=== PATIENT | female | born 1985 | race Caucasian/White ===

== ENCOUNTER 2018-09-02 07:36 | Day surgery (SDC) | payer OTHER ==
[~2018-09-02 07:36] MED LIST: Midazolam 1 MG/ML 2 ML SDV ONE; Propofol 200 MG/20 ML SDV ONE; fentaNYL 100 MCG/2 ML SDV ONE
[2018-09-02] MEDS ORDERED: Dextrose 5%-Lactated Ringers 1,000 ML IV SCH (08:30)
[2018-09-02] MEDS ORDERED: Glycopyrrolate 0.2 MG/ML 2 ML SDV IVPUSH ONE (09:00)
[2018-09-02] MEDS ORDERED: Ondansetron 4 MG/2 ML SDV ONE (09:47)
--- NOTE | 2018-09-02 14:29 | OR ---
DATE OF PROCEDURE: 09/02/2018 PREOPERATIVE DIAGNOSIS: Weight regain, status post Meron-en-Y gastric bypass. POSTOPERATIVE DIAGNOSIS: Weight regain, status post Meron-en-Y gastric bypass associated with development of gastrogastric fistula. DESCRIPTION OF PROCEDURE: The patient was taken to the operating room and placed in a left lateral decubitus position. IV sedation was administered, after which the upper GI endoscope was passed orally through the length of the esophagus and into the gastric pouch, from there through the gastrojejunostomy roughly 20 cm into the Meron limb. Findings included normal hypopharynx, larynx, upper esophageal sphincter, and esophageal body. At the EG junction, there was no significant inflammation. The gastric pouch did have a gastrogastric fistula. This was more or less adjacent to the main fistula. The remainder of the stomach could easily be visualized. Bile was also coming back around this and resulted in some reddening of the mucosa around the fistula site. Gastrojejunostomy itself was otherwise unremarkable. The blind limb of the Meron limb was noted to be quite elongated and it contained some retained food within it at this point. At this point, no further problems were noted. The scope was then withdrawn. The patient had a breath test positive for H. pylori recently, so CLOtest was not obtained at this time, and she is going to be just starting treatment of this today. The scope was withdrawn. The patient was taken to the recovery room in a satisfactory condition. The plan, at this point, will be to proceed with a letter for prior authorization for revision of the gastric bypass with her insurance carrier. Keyshawn Gillis MD /[id number]
== END 2018-09-02 11:10 | disposition home or self-care (01) ==
LOC: JP.SDS 07:36
PROVIDERS: ATTEND Surgery
DX: K95.89 Other complications of other bariatric procedure (principal)
CPT/HCPCS: 43235; 81025; J2250; J2405; J2704; J3010; J3490; J7042

== ENCOUNTER 2019-04-07 08:42 | Inpatient (IN) | payer OTHER ==
[~2019-04-07 08:42] MED LIST changes: +Bupivacaine 0.5%/EPINEPHrine 1:200,000 50 ML MDV ONE; -Midazolam 1 MG/ML 2 ML SDV ONE; -Propofol 200 MG/20 ML SDV ONE; +cefOXitin 2 GM Vial ONE; -fentaNYL 100 MCG/2 ML SDV ONE
[2019-04-07] MEDS ORDERED: Celecoxib 200 MG Cap PO ONE (09:00)
[2019-04-07] MEDS ORDERED: Scopolamine 1.5 MG Transdermal Patch TOP ONE (09:00)
[2019-04-07] MEDS ORDERED: Acetaminophen 500 MG Tab PO ONE (09:00)
[2019-04-07] MEDS ORDERED: Gabapentin 300 MG Cap PO ONE (09:00)
[2019-04-07] MEDS ORDERED: Dextrose 5%-Lactated Ringers 1,000 ML IV SCH (09:15)
[2019-04-07] MEDS ORDERED: Glycopyrrolate 0.2 MG/ML 5 ML MDV ONE (09:39)
[2019-04-07] MEDS ORDERED: Rocuronium 50 MG/5 ML Vial ONE ×2 (09:39→11:41)
[2019-04-07] MEDS ORDERED: fentaNYL 250 MCG/5 ML SDV ONE ×2 (09:39→11:24)
[2019-04-07] MEDS ORDERED: Ondansetron 4 MG/2 ML SDV ONE (09:39)
[2019-04-07] MEDS ORDERED: Succinylcholine 200 MG/10 ML MDV ONE (09:39)
[2019-04-07] MEDS ORDERED: Dexamethasone 4 MG/ML SDV ONE (09:39)
[2019-04-07] MEDS ORDERED: Neostigmine Methylsulfate 1 MG/ML 5 ML Syringe ONE (09:39)
[2019-04-07] MEDS ORDERED: Propofol 200 MG/20 ML SDV ONE (09:39)
[2019-04-07] MEDS ORDERED: Magnesium Sulfate 3.9 GM in Sodium Chloride 0.9% 100 ML IV ONE (10:30)
[2019-04-07] MEDS ORDERED: Ketamine 500 MG/5 ML MDV IV SCH (10:30)
[2019-04-07] MEDS ORDERED: Ketamine 50 MG in Sodium Chloride 0.9% 49.5 ML IV SCH (10:30)
[2019-04-07] MEDS: cefOXitin 2 GM in Sodium Chloride 0.9% 50 ML IV ONE ×2 (11:17→15:53)
[2019-04-07] MEDS ORDERED: hydrOXYzine HCL 100 MG/2 ML SDV IM ONE (13:59)
[2019-04-07] MEDS ORDERED: hydrOXYzine HCL 100 MG/2 ML SDV IM PRN (15:06)
[2019-04-07] MEDS ORDERED: Metoclopramide 10 MG/2 ML SDV IVPUSH PRN (15:06)
[2019-04-07] MEDS ORDERED: Cyclobenzaprine 10 MG Tab PO PRN (15:06)
[2019-04-07] MEDS ORDERED: HYDROmorphone 0.5 MG/0.5 ML Syringe IVPUSH PRN (15:06)
[2019-04-07] MEDS ORDERED: Labetalol 20 MG/4 ML Syringe IVPUSH PRN (15:06)
[2019-04-07] MEDS ORDERED: diphenhydrAMINE 50 MG/ML SDV IVPUSH PRN (15:06)
[2019-04-07] MEDS: HYDROmorphone 1 MG/ML Syringe IV PRN ×2 (15:23→20:41)
[2019-04-07] MEDS: Ondansetron 4 MG/2 ML SDV IVPUSH PRN ×2 (15:23→19:21)
[2019-04-07] MEDS ORDERED: MVI, Adult with Vitamin K 10 ML, Thiamine 200 MG, Chromium/Copper/Mang/Selen/Zn 1 ML in... IV SCH ×4 (16:00)
[2019-04-07] MEDS: Acetaminophen 500 MG Tab PO SCH ×2 (16:39→23:27)
[2019-04-07] MEDS: Pantoprazole 40 MG Vial IVPUSH SCH (16:40)
[2019-04-07] MEDS: cefOXitin 2 GM in Sodium Chloride 0.9% 50 ML IV SCH ×2 (18:34→23:27)
[2019-04-07] MEDS: Heparin Sodium 5,000 Units/ML Vial SUBCUT SCH (19:24)
[2019-04-07] MEDS: Gabapentin 250 MG/5 ML Solution ML 470 ML Bottle PO SCH (21:42)
[2019-04-07] MEDS: Dextrose 5%-Lactated Ringers 1,000 ML IV SCH (23:17)
[2019-04-07] MEDS: oxyCODONE 5 MG Tab PO PRN (23:27)
[2019-04-08] MEDS ORDERED: Iopamidol 612 MG/ML 50 ML SDV PO STA (03:28)
--- NOTE | 2019-04-08 05:14 | CRLCR ---
Indication: Meron-en-Y revision Technique: Abdomen 3 view. Comparison: None Findings/Impression: : Three static images of the abdomen were obtained after administration of oral contrast material. Oral contrast material is seen within the distal esophagus, gastric pouch, and proximal small bowel. There is a surgical drain projecting over the left quadrant. No evidence for leak of oral contrast. Dictated by Uzma Gates MD @ Apr 08 2019 5:10AM Signed by Dr. Uzma Gates @ Apr 08 2019 5:13AM
[2019-04-08] MEDS: Dextrose 5%-Lactated Ringers 1,000 ML IV SCH ×2 (05:37→14:41)
[2019-04-08] MEDS: oxyCODONE 5 MG Tab PO PRN ×3 (05:48→19:30)
[2019-04-08] MEDS: cefOXitin 2 GM in Sodium Chloride 0.9% 50 ML IV SCH ×3 (05:50→17:52)
--- NOTE | 2019-04-08 07:22 | CRLCR ---
INDICATION: Status post revision Meron-en-Y gastric bypass; delayed imaging from previous upper GI. TECHNIQUE: KUB 3 hrs after administration of oral contrast. FINDINGS: Contrast identified within the small bowel in the pelvis. Surgical drain identified in the left upper quadrant of the abdomen. Impression: Contrast has progressed further and present in the small bowel present within the lower pelvis. Dictated by Flo Patel MD @ Apr 08 2019 7:17AM Signed by Dr. Flo Patel @ Apr 08 2019 7:21AM
[2019-04-08] MEDS ORDERED: Ondansetron 4 MG Tab.DIS PO PRN (07:34)
[2019-04-08] MEDS: Citalopram 10 MG Tab PO SCH (08:28)
[2019-04-08] MEDS: Celecoxib 200 MG Cap PO SCH ×2 (08:28→21:05)
[2019-04-08] MEDS: Acetaminophen 500 MG Tab PO SCH ×2 (08:28→16:08)
[2019-04-08] MEDS: Heparin Sodium 5,000 Units/ML Vial SUBCUT SCH ×2 (08:28→19:23)
[2019-04-08] MEDS: SCOPOLAMINE PATCH CHECK TOP SCH (08:28)
[2019-04-08] MEDS: Gabapentin 250 MG/5 ML Solution ML 470 ML Bottle PO SCH ×3 (08:31→21:04)
[2019-04-08] MEDS ORDERED: CITALOPRAM HYDROBROMIDE 10 MG PO SCH (09:00)
--- NOTE | 2019-04-08 09:26 | PN ---
DATE OF SERVICE: 04/08/2019 SUBJECTIVE: Dai is postoperative day #1. Her upper GI this morning was normal. Vital signs have been stable. Pain has been controlled. Oral intake 580. Urine output 1380 via López catheter. TIMO drain put out 195 mL of a light pink drainage. REVIEW OF SYSTEMS: Remainder of review of systems negative for any pertinent positives and negatives. OBJECTIVE: GENERAL: Dai Perez is a 34-year-old female. VITAL SIGNS: TPR is 100, 75, 18, blood pressure 149/82. HEENT: Negative. NECK: Supple. HEART: Regular rate and rhythm without murmur. LUNGS: Clear. ABDOMEN: Dressings dry and intact. Abdominal binder is on. EXTREMITIES: Without peripheral edema. ASSESSMENT: Diagnostic laparoscopy with; 1. Revision of Meron-en-Y gastric bypass surgery. 2. Small bowel resection. 3. Hepatomegaly for weight regain with gastrogastric fistula, very enlarged gastric pouch, segment of small bowel ischemic after takedown of adhesions and marked hepatomegaly. Date of surgery: 04/07/2019. Surgeon: Keyshawn Gillis MD. PLAN: 1. Decrease IV to 100 mL/h. 2. Dressing off, may shower. 3. Discontinue López catheter. 4. Step 2 gastric bypass diet without cereal. 5. Zofran ODT 4 mg every 4 hours p.r.n. nausea, vomiting,. 6. Discontinue IV Dilaudid. 7. Discontinue continuous pulse ox. 8. Communication order: 3 med cups per hour or 1 every 20 minutes. 9. We will evaluate p.r.n. or in a.m. Mildred Ferreira PA-C /[id number]
[2019-04-08 10:01] LABS: HEMOGLOBIN A1C 5.5 % (4.5-6.2)
[2019-04-08] MEDS ORDERED: MVI, Adult with Vitamin K 10 ML, Thiamine 200 MG, Chromium/Copper/Mang/Selen/Zn 1 ML in... IV SCH ×4 (16:00)
[2019-04-08] MEDS: Pantoprazole 40 MG Vial IVPUSH SCH (16:10)
[2019-04-09] MEDS: Acetaminophen 500 MG Tab PO SCH ×2 (00:08→08:04)
[2019-04-09] MEDS: Dextrose 5%-Lactated Ringers 1,000 ML IV SCH (02:51)
[2019-04-09] MEDS: oxyCODONE 5 MG Tab PO PRN ×2 (03:16→11:49)
[2019-04-09] MEDS ORDERED: Magnesium Hydroxide 400 MG/5 ML Susp 30 ML Cup PO PRN (07:51)
[2019-04-09] MEDS: Citalopram 10 MG Tab PO SCH (08:05)
[2019-04-09] MEDS: Celecoxib 200 MG Cap PO SCH (08:05)
[2019-04-09] MEDS: Heparin Sodium 5,000 Units/ML Vial SUBCUT SCH (08:11)
[2019-04-09] MEDS: Gabapentin 250 MG/5 ML Solution ML 470 ML Bottle PO SCH (08:11)
[2019-04-09] MEDS: SCOPOLAMINE PATCH CHECK TOP SCH (08:16)
[2019-04-09] MEDS ORDERED: Cyanocobalamin (Vitamin B12) 1,000 MCG/ML SDV IM ONE (09:00)
--- NOTE | 2019-04-10 05:48 | DISCH ---
ADMISSION DIAGNOSES: Weight regain after Meron-en-Y gastric bypass surgery; morbid obesity, BMI 44.1; iron deficiency anemia; hypertension; polycystic ovary syndrome; unspecified surgical malabsorption; prediabetes; anxiety; maladaptive health behaviors affecting medical condition; vitamin B12 and B complex deficiency; and vitamin D deficiency. DISCHARGE DIAGNOSES: Diagnostic laparoscopy with; 1. Revision of Meron-en-Y gastric bypass surgery. 2. Small bowel resection. 3. Hepatomegaly for weight regain with gastrogastric fistula, very enlarged gastric pouch, segment of small bowel ischemic after takedown of adhesions and marked hepatomegaly. Date of surgery: 04/07/2019. Surgeon: Keyshawn Gillis M.D. HISTORY: Dai Perez is a 34-year-old female with longstanding history of morbid obesity and weight regain after Meron-en-Y gastric bypass surgery. After evaluation and discussion of possible risks and possible complications, she wished to proceed with surgical procedure. HOSPITAL COURSE: Dai had her surgery on 04/07/2019. She had no operative complications. On postop day #1, her upper GI was normal. She was started on a step-2 with no cereal, gastric bypass diet. Her activity was good. Pain was well managed. She received dietary instruction. On postop day #2, she was able to be discharged to home. Vital signs stable. Oral intake adequate. She received dietary instruction. PHYSICAL EXAMINATION: GENERAL: Dai Perez is a 34-year-old female. VITAL SIGNS: Height is 5 feet 8 inches, weight is 290 pounds, BMI is 44.1. TPR; 97.7, 74, 16. Blood pressure 137/83. HEENT: Negative. NECK: Supple. HEART: Regular rate and rhythm. LUNGS: Clear. ABDOMEN: Incisions look good. Sutures intact. Abdominal binder is on. EXTREMITIES: Without peripheral edema. DISPOSITION: Discharged to home. CONDITION: Stable and improving. FOLLOWUP APPOINTMENT: 04/16/2019 at 12:00 p.m. HOME MEDICATIONS: 1. Tylenol Extra Strength 1000 mg q.8 hours scheduled and may go to p.r.n. for pain. 2. Celebrex 200 mg oral twice daily. 3. Milk of magnesia 30 mL, 2 were sent home with the patient to take 1 daily. 4. Zofran ODT 4 mg q.4 hours p.r.n. nausea, #30. She is to resume home medication of Celexa 10 mg daily and discontinue taking vitamins and supplements until first postop appointment. DISCHARGE INSTRUCTIONS: 1. Diet: Step-2 gastric bypass diet with no cereal for 2 weeks until 04/22/2019. 2. Activity: No lifting over 10 pounds for 2 weeks. Walk at least 6 times daily inside your home. 3. Driving: Do not drive for 1 week and while on pain medication. 4. Shower/bathing: May shower. 5. Notify provider if any fever, increased pain, nausea or vomiting. Keep site clean and dry. 6. Wound incision care: Wear abdominal binder for 2 weeks and then as tolerated. 7. Special instructions: a. Use incentive spirometer 10 times every hour while awake for 1 week. b. For every hour of riding in the car on the way home, walk 5 to 10 minutes to avoid getting a blood clot. c. Keep record of fluid and water intake and bring to clinic appointment. 8. Prior to discharge, the patient was given special instructions on the use of no straws and caffeine. She was drinking caffeine in the hospital, and she was given instructions to eliminate all caffeine.
--- NOTE | 2019-04-10 10:48 | OR ---
DATE OF PROCEDURE: 04/07/2019 SURGEON: Keyshawn Gillis MD PREOPERATIVE DIAGNOSIS: Weight regain associated with gastrogastric fistula and a large gastric pouch. POSTOPERATIVE DIAGNOSES: 1. Weight regain associated with gastrogastric fistula and a large gastric pouch. 2. Segment of small bowel ischemic after takedown of adhesions. 3. Marked hepatomegaly. OPERATIVE PROCEDURES: Diagnostic laparoscopy with, 1. Revision of Meron-en-Y gastric bypass (09087). 2. Separate small bowel resection (93888). 3. Andrew-Cut needle liver biopsy ([id number]). ANESTHESIA: General. ASSEMBLER RUBBER FOOTWEAR: Mildred Ferreira PA-C. INDICATION FOR PROCEDURE: This is a 34-year-old, several years status post Meron-en-Y gastric bypass, presenting with significant weight regain. Upper endoscopy showed a gastrogastric fistula as well as a significantly enlarged gastric pouch and gastrojejunostomy. Plan is to proceed with a laparoscopic or if necessary open revision of the gastric bypass. This will be involving at least division of the gastric fistula, but more likely more significant final revision of the gastrojejunostomy reducing the pouch size as well as isolating it from the fistula site. We will also likely adjust the small bowel limb lengths to facilitate some increased weight loss as well. Potential risks of the procedure including bleeding, infection, leaks from various GI tract closures, problems with bowel obstruction over time, as well as the possibility of cardiopulmonary, septic, or hemorrhagic complications leading to were discussed, and the patient wishes to proceed. DETAILS OF PROCEDURE: The patient was taken to the operating room. After general endotracheal anesthesia was induced, she was placed in a lithotomy position. López catheter was inserted, and the abdomen was prepped and draped. 15 cm inferior and 5 cm left of the xiphoid process, a transverse incision was made and the peritoneal cavity entered under direct vision with an Optiview trocar, inflated to 15 mmHg pressure of CO2. Laparoscope was then reinserted and no underlying trocar insertion site injuries were seen. Following this, bilateral transversus abdominis plane blocks were placed under direct vision and 5 additional trocars were placed across the upper and mid-abdomen. Initial exploration revealed markedly enlarged and fatty-appearing liver. Andrew-Cut needle biopsy was obtained from left lobe of the liver. Hemostasis was obtained with electrocautery. At this point, we then opted to address the area of the gastrojejunostomy initially. The patient was placed in more of a sitting position. Some adhesions between the area of the bypass and the liver were then taken down with Harmonic scalpel. The patient was noted, at this point, to have a quite strikingly enlarged gastric pouch. This abutted the bypassed portion of the stomach as well. The decision at this point was to essentially resect the previous gastrojejunostomy along with some adjacent bypassed stomach, thus assuring that the fistula site would be within that excision and then create a much smaller, roughly 10 mL to 15 mL proximal gastric pouch and a new gastrojejunostomy. The area along the Meron limb was initially dissected free from some adhesions and the Meron limb divided more or less flush with the gastrojejunostomy. Gradual dissection using Harmonic scalpel as well as dividing some tissues with faye was then undertaken. This eventually freed up the fundus of the stomach and dissection continued where the gastric pouch and bypassed portion of the stomach were more or less fused, on the lesser curvature side, then further dissection continued along the gastric pouch up to a point where the proximal stomach could be divided with only roughly 3 cm distance between anatomic gastrojejunostomy and the point of division. This was accomplished with 2 firings of the MILLY black loads. As one reflected the tissue downward, it became evident that we would essentially need to divide the stomach at a point just distal to the location of the gastrojejunostomy being adherent to the bypassed stomach. This was done with MILLY black loads as well and that specimen was subsequently removed from the field. Attention was now taken to revision of the small bowel component. Some adhesions between the Meron limb, below the point where they had been divided, were taken down with electrocautery and Harmonic scalpel. This eventually led to freeing up of the Meron limb down to the level of the jejunojejunostomy. The Meron limb was at this point measured to be 140 cm. This was subsequently resected some additional lysis of adhesions, roughly 10 cm segment of the small bowel became ischemic in appearance and needed to be resected,. At this point, the previous jejunojejunostomy was essentially continuity of the biliopancreatic limb and from the ligament of Treitz, this was traced down 200 cm, giving the patient a much longer biliopancreatic limb. Between the end of the Meron limb then and the small bowel at that level, a [id number]-[id number] enteroenterostomy was accomplished with internal firing of the Endo-MILLY 60 mm stapler. Common opening was then closed transversely with the same stapler and the angles anastomosed and mesenteric defect approximated with some 0 Ethibond stitch. Attention was now taken to formation of the gastrojejunostomy. The anvil of a 25-mm EEA stapler was attached to Oxford sump tube. The latter was brought down through the mouth and taken out a small opening in the gastric pouch, allowing the anvil likewise to be pulled down through the gastric pouch. Divided end of the Meron limb was then opened and the main body EEA stapler passed several centimeters into the lumen of small bowel, brought up the anvil and united with it, thus creating the gastrojejunostomy. Upon removal of the stapler, double donuts of mucosa were noted within it. The small bowel was closed off with a vascular staple line. The gastrojejunostomy was then reinforced with some 3-0 Vicryl seromuscular stitch along with fibrin sealant. A leak test was accomplished with injection of 120 mL of air in the gastric pouch while it was submerged with cefoxitin-containing saline solution. No leaks were identified. A single Lam-Jc drain was then taken out through the left lateral trocar site and positioned adjacent to the gastrojejunostomy, and from there up into the splenic fossa. With no further problems noted, trocars were removed and the peritoneal cavity deflated. Incisions were closed with some 4-0 Vicryl skin stitch, which was also used to fix the drain. The patient was taken to the recovery room in satisfactory condition. Physician laboratory chemical assistant, Mildred Ferreira, played an essential role in assisting in this case, helping to position the patient, retract structures as needed, as well as suturing and cutting sutures when indicated. Her presence improved patient safety and decreased the operative time. Keyshawn Gillis MD /[id number]
== END 2019-04-09 11:55 | disposition home or self-care (01) | DRG 327 ==
LOC: JP.SDSSCHI 08:42 → JP.SDS 08:42 → EDSTATUS 10:15 → JP.MS 14:10
PROVIDERS: ADMIT Surgery; ATTEND Surgery
PROC: 0D164ZA Bypass Stomach to Jejunum, Percutaneous Endoscopic Approach (ICD-10-PCS; principal; 2019-04-07)
PROC: 0FB24ZX Excision of Left Lobe Liver, Percutaneous Endoscopic Approach, Diagnostic (ICD-10-PCS; 2019-04-07)
PROC: 0DB84ZZ Excision of Small Intestine, Percutaneous Endoscopic Approach (ICD-10-PCS; 2019-04-07)
DX: K31.6 Fistula of stomach and duodenum (principal); K90.9 Intestinal malabsorption, unspecified; Z68.41 Body mass index [BMI] 40.0-44.9, adult; K55.9 Vascular disorder of intestine, unspecified; K66.0 Peritoneal adhesions (postprocedural) (postinfection); E66.01 Morbid (severe) obesity due to excess calories; D50.9 Iron deficiency anemia, unspecified; I10 Essential (primary) hypertension; E28.2 Polycystic ovarian syndrome; F41.9 Anxiety disorder, unspecified; E53.8 Deficiency of other specified B group vitamins; E53.9 Vitamin B deficiency, unspecified; E55.9 Vitamin D deficiency, unspecified; R16.0 Hepatomegaly, not elsewhere classified
CPT/HCPCS: 36415; 74018; 74240; 80053; 82962; 83036; 83735; 84100; 85025; 86850; 86900; 86901; 88307; 88313; A9270-GY; C9113; J0171; J0330; J0694; J1100; J1170; J1644; J2405; J2704; J2710; J2765; J2795; J3010; J3410; J3411; J3420; J3475; J3490; J7050; J7121; Q9967

== ENCOUNTER 2019-04-24 12:43 | Observation (INO) | payer OTHER ==
[2019-04-24] MEDS ORDERED: Acetaminophen 650 MG Supp RECTAL PRN (13:39)
[2019-04-24] MEDS ORDERED: Meperidine PF 100 MG/ML Syringe IM ONE (14:00)
[2019-04-24] MEDS ORDERED: Iopamidol 612 MG/ML 30 ML SDV PO ONE (14:41)
[2019-04-24] MEDS ORDERED: Sodium Chloride 0.9% 90 ML IV ONE (14:41)
[2019-04-24] MEDS ORDERED: Sodium Chloride 0.9% 10 ML Syringe FLUSH PRN (14:41)
[2019-04-24] MEDS ORDERED: Iopamidol 755 Mg/ML 100 ML Bottle IV SCH (14:45)
[2019-04-24] MEDS: Dextrose 5%-Lactated Ringers 1,000 ML IV SCH (15:04)
[2019-04-24] MEDS ORDERED: Naloxone 0.4 MG/ML SDV IVPUSH PRN (16:17)
--- NOTE | 2019-04-24 16:24 | CRLCT ---
INDICATION: pain, revision of gastric bypass [address] CHEST, ABDOMEN, AND PELVIS WITH CONTRAST TECHNIQUE: Multidetector CT imaging was performed through the chest, abdomen, and pelvis following intravenous contrast administration using 100 mL Isovue 370. Coronal and sagittal reconstructions were generated. COMPARISON: None. FINDINGS: Lungs and airways: Mild bilateral dependent and basilar lung atelectasis, left greater than right. No confluent infiltrates, suspicious nodules, or masses. Central airways are patent. Pleura and pleural spaces: Small left pleural effusion. Heart and mediastinum: Normal heart size. No significant pericardial effusion. No pathologically enlarged mediastinal lymph nodes. Vascular structures: No filling defects in the pulmonary arterial tree to suggest pulmonary emboli. Normal caliber thoracic and abdominal aorta without evidence of dissection. Chest wall and axillae: No mass or axillary lymphadenopathy. Spleen: Within normal limits. Gallbladder and bile ducts: Status post cholecystectomy. No biliary dilation identified. Pancreas, adrenals, and retroperitoneum: No pancreatic or adrenal mass. No pathologically enlarged lymph nodes identified in the abdomen or pelvis. Kidneys, ureters, and urinary bladder: No renal masses or hydronephrosis. No bladder mass or definite wall thickening. Gastrointestinal tract, liver, peritoneum, and abdominal wall: Multiple surgical clips in the left upper quadrant and postoperative changes of Meron-en-Y gastric bypass. Images 20-37 of series 5 and images 42-65 of series 6 show a bilobed 10.5 x 2.7 x 2.8 centimeter fluid collection within the left hepatic lobe draped over the esophagogastric junction, potentially representing an abscess. An additional smaller collection measuring 3.5 x 1.1 x 1.5 centimeters is seen along the undersurface of the left hepatic lobe more anteriorly on image 29 of series 5 and image 35 series 6, and could represent an additional abscess. No evidence of bowel obstruction. Appendix not identified. No free air identified. Postoperative changes in the anterior abdominal wall consistent with recent laparoscopic surgery. Reproductive organs: No pelvic masses. Bones: Normal for age. IMPRESSION: 1. Postoperative changes of Meron-en-Y gastric bypass. 2. Bilobed 10.5 x 2.7 x 2.8 centimeter fluid collection within the left hepatic lobe draped over the esophagogastric junction and 3.5 x 1.1 x 1.5 centimeter fluid collection along the undersurface of the left hepatic lobe anteriorly, both possibly representing abscesses. 3. Small left pleural effusion. 4. Status post cholecystectomy. YOSHI GILL MD [facility] Dictated by Kenneth Gill MD @ 04/24/2019 4:18:29 PM Dictated by: Kenneth Gill MD @ 04/24/2019 16:23:00 (Electronically Signed)
[2019-04-24] MEDS: HYDROmorphone/Normal Saline 15 MG/30 ML PCA IV PRN (16:48)
--- NOTE | 2019-04-24 18:07 | CRLUS ---
INDICATION: left arm pain LEFT UPPER EXTREMITY VENOUS DUPLEX ULTRASOUND TECHNIQUE: Duplex sonography using grayscale imaging as well as color and spectral Doppler interrogation was performed over the left upper extremity with attention to the major venous branches. FINDINGS: The left internal jugular, subclavian, axillary, brachial, basilic, radial, and ulnar veins exhibit appropriate compressibility and normal Doppler flow. The cephalic vein could not be visualized. IMPRESSION: No evidence of venous thrombosis or obstruction in the left upper extremity. YOSHI GILL MD [facility] Dictated by: Kenneth Gill MD @ 04/24/2019 18:06:12 (Electronically Signed)
[2019-04-24] MEDS: Ondansetron 4 MG/2 ML SDV IVPUSH PRN (22:45)
[2019-04-25] MEDS: Dextrose 5%-Lactated Ringers 1,000 ML IV SCH ×3 (00:13→20:13)
[2019-04-25] MEDS: Acetaminophen 325 MG Tab PO PRN ×2 (04:58→17:54)
[2019-04-25] MEDS: Magnesium Sulfate/Water 2 GM in Premix Bag 1 BAG IV SCH ×3 (08:43→20:13)
[2019-04-25] MEDS: Citalopram 10 MG Tab PO SCH (08:48)
--- NOTE | 2019-04-25 09:18 | CR ---
Shoulder Comp Lt CLINICAL HISTORY: 3 view FINDINGS: There is no acute fracture or dislocation in the left shoulder. Articular surfaces are smooth. There is no obvious effusion Impression: Negative
[2019-04-25] MEDS ORDERED: Potassium Phosphates 20 MMOLE in Sodium Chloride 0.9% 250 ML IV SCH (09:30)
--- NOTE | 2019-04-25 09:55 | PN ---
DATE OF SERVICE: 04/25/2019 SUBJECTIVE: Dai continues to report pain on a pain scale of 1 to 10, a 5 to 7/10 in her left shoulder, tenderness to touch. Peripheral vascular ultrasound, angiography, and abdominal CT reviewed, all thought to be within normal limits. The fluid collection in the abdomen Keyshawn Gillis MD thought to be secondary to normal postop, using MEDICAL DONATION PROFESSIONAL for pain control, then up independently in room. Oral intake 390, urine output 300. REVIEW OF SYSTEMS: Remainder of review of systems negative for any pertinent positives and negatives. OBJECTIVE: GENERAL: Dai Perez is a 34-year-old female. Alert and orientated. VITAL SIGNS: TPR 95.8, 86, 16. Blood pressure 113/58. HEENT: Negative. NECK: Supple. HEART: Regular rate and rhythm. LUNGS: Clear. ABDOMEN: Soft and nontender. EXTREMITIES: Left extremity behind the shoulder is point tenderness in the posterior shoulder area, limited range of motion due to increase in pain. ASSESSMENT: 1. Left shoulder pain, status post revision. 2. Meron-en-Y gastric bypass surgery. 3. Unspecified surgical malabsorption B12 deficiency. PLAN: 1. Continue MEDICAL DONATION PROFESSIONAL. 2. Magnesium 2 g IV q.6 hours x72 hours. 3. K-Phos 45 millimoles. 4. Waiting for left shoulder x-ray. If negative, we will check an MRI. Consult Can Gutierrez MD hospitalist for shoulder pain. 5. We will evaluate p.r.n. or in a.m. Mildred Ferreira PA-C /[id number]
[2019-04-25] MEDS: Ondansetron 4 MG/2 ML SDV IVPUSH PRN (10:43)
--- NOTE | 2019-04-25 12:01 | PCM.CONS ---
H&P History of Present Illness - General Date of Service: 04/25/19 Admit Problem/Dx: Admission Diagnosis/Problem Admission Diagnosis/Problem Pain Source of Information: Patient, Provider History Limitations: Reports: No Limitations - History of Present Illness Initial Comments - Free Text/Narative: CC: My shoulder hurts so bad HPI: Dai was admitted yesterday with severe left shoulder pain. I was asked to see her today regarding left shoulder, neck and back pain. She reports onset of pain about 5 days ago. Pain onset was sudden and severe. She describes sharp pain that starts in the shoulder and radiates to the left neck as well as into the left mid back. The pain has started to progress down into the lower back and flank area. Pain is worse when she is laying on her back and especially on her left side. Movement around the shoulder also causes some pain. Pain pills have not helped much and Tylenol has provided no relief. Pain has slowly been getting worse and definitely not getting better as the 5 days have progressed. She is able to find some comfort when she lays on her right side curled up in a position. She feels short of breath and her pain does get worse when she tries to take a deep breath. She does not report abdominal pain. She has had no appetite and when her pain is severe she is not able to even take in fluids. No diarrhea or change in bladder habits. She has had fevers both subjective and objective at home with the highest temperature more than 101 degrees. She had gastric bypass surgery about 2 weeks ago and the first week out of the hospital went very well with no problems. Left Shoulder Pain Score (Numeric/FACES): 8 - Related Data Allergies/Adverse Reactions: Allergies Allergy/AdvReac Type Severity Reaction Status Date / Time Penicillins Allergy Hives Verified 04/07/19 09:29 Home Medications: Home Meds Citalopram Hydrobromide [Celexa] 10 mg PO DAILY 08/30/18 [History] Celecoxib [CeleBREX] 200 mg PO BID cap 04/09/19 [Rx] Magnesium Hydroxide [Milk of Magnesia] 30 ml PO DAILY PRN cup 04/09/19 [Rx] Ondansetron [Zofran ODT] 4 mg PO Q4H PRN #30 tab.dis 04/09/19 [Rx] Acetaminophen 1,000 mg PO Q6HR PRN 04/24/19 [History] Past Medical History HEENT History: Reports: None Gastrointestinal History: Reports: Other (See Below) Genitourinary History: Reports: None [employer] History: Reports: , Other (See Below) Other OB/BYN History: september 2017 Neurological History: Reports: None Psychiatric History: Reports: Anxiety Endocrine/Metabolic History: Reports: Obesity/BMI 30+ Hematologic History: Reports: Anemia, B12 Deficiency, Iron Deficiency Oncologic (Cancer) History: Reports: None - Infectious Disease History Infectious Disease History: Reports: None - Past Surgical History Head Surgeries/Procedures: Reports: None HEENT Surgical History: Reports: Other (See Below) Other HEENT Surgeries/Procedures: wisdom teeth GI Surgical History: Reports: Appendectomy, Bariatric Procedure, Cholecystectomy , Other (See Below) Female Surgical History: Reports: Section Social & Family History - Family History Family Medical History: Noncontributory Cardiac: Reports: Other (See Below) Other Cardiac Family History: father with PVD - Tobacco Use Smoking Status *Q: Never Smoker Second Hand Smoke Exposure: No - Caffeine Use Caffeine Use: Reports: None Other Caffeine Use: under 100 mg per day - Alcohol Use Alcohol Use History: No - Recreational Drug Use Recreational Drug Use: No H&P Review of Systems - Review of Systems: Review Of Systems: See Below Free Text/Narrative: A complete 12 point review of systems was obtained. Pertinent positives and negatives are noted in the history of present illness. All other systems were reviewed and were negative except as noted. Exam - Exam Exam: See Below - Vital Signs Vital Signs: Last Vital Signs Temp 35.6 C L 04/25/19 10:29 Pulse 90 04/25/19 10:29 Resp 16 04/25/19 10:29 BP 137/74 04/25/19 10:29 Pulse Ox 93 L 04/25/19 10:29 Weight: 128.82 kg - Exam Quality Assessment: No: Supplemental Oxygen General: Alert, Oriented, Cooperative, Mild Distress HEENT: Conjunctiva Clear, Mucosa Moist & [place]. No: Scleral Icterus Neck: Supple, Trachea Midline. No: Lymphadenopathy Lungs: Normal Respiratory Effort, Decreased Breath Sounds (mild left base) Cardiovascular: Regular Rhythm, Tachycardia GI/Abdominal Exam: Soft, No Distention, Tender (LUQ) Back Exam: Normal Inspection, Muscle Spasm, Paraspinal Tenderness (left midback) . No: Full Range of Motion Extremities: No Pedal Edema. No: Increased Warmth Skin: Warm, Dry Neuro Extensive - Mental Status: Alert, Oriented x3, Nl Response to Commands Neuro Extensive - Motor, Sensory, Reflexes: No: Dysarthria, Abnormal Motor, Tremor Psychiatric: Alert, Normal Affect - Patient Data Lab Results Last 24 hrs: Laboratory Results - last 24 hr 04/25/19 04/25/19 Range/Units 04:28 04:28 WBC 12.4 H (4.5-11.0) K/uL RBC 3.86 (3.30-5.50) M/uL Hgb 10.9 L (12.0-15.0) g/dL Hct 34.2 L (36.0-48.0) % MCV 89 (80-98) fL MCH 28 (27-31) pg MCHC 32 (32-36) % Plt Count 536 H (150-400) K/uL Neut % (Auto) 67 H (36-66) % Lymph % (Auto) 17 L (24-44) % [place] % (Auto) 15 H (2-6) % Eos % (Auto) 1 L (2-4) % Baso % (Auto) 0 (0-1) % Sodium 140 (140-148) mmol/L Potassium 3.5 L (3.6-5.2) mmol/L Chloride 104 (100-108) mmol/L Carbon Dioxide 25 (21-32) mmol/L Anion Gap 14.5 H (5.0-14.0) mmol/L BUN 3 L (7-18) mg/dL Creatinine 0.5 L (0.6-1.0) mg/dL Est Cr Clr Drug Dosing 158.42 mL/min Estimated GFR (MDRD) > 60 (>60) Glucose 135 H (74-106) mg/dL Calcium 8.4 L (8.5-10.1) mg/dL Phosphorus 3.6 (2.5-4.9) mg/dL Magnesium 1.7 L D (1.8-2.4) mg/dL Total Bilirubin 0.3 (0.2-1.0) mg/dL AST 26 (15-37) U/L ALT 36 (12-78) U/L Alkaline Phosphatase 104 (46-116) U/L Total Protein 7.3 (6.4-8.2) g/dL Albumin 2.3 L (3.4-5.0) g/dL Globulin 5.0 H (2.3-3.5) g/dL Albumin/Globulin Ratio 0.5 L (1.2-2.2) Result Diagrams: 04/25/19 04:28 04/25/19 04:28 Imaging Impressions Last 24 hrs: Left shoulder XR-images personally reviewed-no fracture or bony abnormality CT CHEST/ABD/PELVIS-no evidence for pulmonary embolism. No significant bony abnormalities. She does have 2 bilobed fluid collections in the left lobe of the liver, one around the EG junction area. Postoperative changes from her gastric bypass were noted. No obvious fluid collections other than the ones in the lobe of the liver. She did have a small left pleural effusion. Sepsis Event Note - Evaluation Sepsis Screening Result: No Definite Risk - Focused Exam Vital Signs: Vital Signs Temp Pulse Resp BP Pulse Ox 04/25/19 10:29 35.6 C L 90 16 137/74 93 L 04/25/19 07:16 98 04/25/19 07:07 35.4 C L 86 16 113/58 L 96 04/25/19 03:30 36.3 C 89 18 96 04/25/19 00:43 93 L Date Exam was Performed: 04/25/19 Time Exam was Performed: 14:31 Consult PN Assessment/Plan POD#: other Procedures: Procedures BLOOD TYPING SEROLOGIC ABO (08/22/18) BLOOD TYPING SEROLOGIC RH(D) (08/22/18) EGD DIAGNOSTIC BRUSH WASH (09/02/18) RBC ANTIBODY SCREEN (08/22/18) URINE TEST (09/02/18) Problem List Initiated/Reviewed/Updated: Yes My Orders Last 24 Hours: My Active Orders 04/25/19 11:56 tiZANidine [Zanaflex] 4 mg PO Q6H PRN 04/25/19 11:58 CRP [C-REACTIVE PROTEIN] [CHEM] Routine Plan: ASSESSMENT AND PLAN - LEFT shoulder pain-possibly a component of muscle spasm but this really sounds like referred pain. Examination of the rotator cuff muscles was unremarkable. Shoulder examination was unremarkable. CRP is greatly elevated at 18. CT scan of the chest showed a small effusion but no PE. CT of the abdomen and pelvis showed some fluid collections in the left lobe of the liver and this could be causing the referred pain. I worry about inflammatory fluid or possibly infection causing referred pain as well as the tachycardia and CRP elevation. Patient has been febrile outside of the hospital but not overnight here. White blood cell count is mildly elevated at 12,000. -Trial of muscle relaxer -Pain control -Close monitoring for infection and she may need additional exploration of the abdomen to see if these fluid collections are causing trouble or not Status post revision of her gastric bypass surgery about 2 weeks ago-initial postoperative period was unremarkable. -Postoperative care as per surgical team Can Gutierrez M.D. Requesting Provider: Dr Gillis Date Consult Requested: 04/25/19 Reason for Consult: left shoulder pain Patient History Reviewed: Yes Admission H&P Reviewed: No (not available ) Notified Requestor: Yes Time Spent (in minutes): 60
[2019-04-25] MEDS: tiZANidine 4 MG Tab PO PRN ×2 (12:16→20:13)
--- NOTE | 2019-04-25 13:01 | PCM.CONSN ---
- General Info Date of Service: 04/25/19 Subjective Update: 34 year old female with history of gastric bypass 04/09/19 developed sudden onset of left shoulder pain 04/19/19. No injury or activity that would have strained or affected shoulder. Currently reports that pain has improved somewhat but is still present, constant pain at rest that is worse with motion. Reports pain more superior shoulder and radiating up into left side of neck to her ear. Pain also radiates down to elbow and into scapula and mid back. Has discomfort with deep breath and cannot lie on her left side or on her back without increased pain. No complaints of tingling or numbness into hand. - Review of Systems Musculoskeletal: Reports: Shoulder Pain - Patient Data Vitals - Most Recent: Last Vital Signs Temp 35.6 C L 04/25/19 10:29 Pulse 90 04/25/19 10:29 Resp 16 04/25/19 10:29 BP 137/74 04/25/19 10:29 Pulse Ox 90 L 04/25/19 12:41 Weight - Most Recent: 128.82 kg I&O - Last 24 Hours: Intake & Output 04/24/19 04/25/19 04/25/19 22:59 06:59 14:59 Intake Total 526 1240 120 Output Total 300 Balance 526 940 120 Lab Results Last 24 Hours: Laboratory Results - last 24 hr 04/25/19 04/25/19 04/25/19 Range/Units 04:28 04:28 04:28 WBC 12.4 H (4.5-11.0) K/uL RBC 3.86 (3.30-5.50) M/uL Hgb 10.9 L (12.0-15.0) g/dL Hct 34.2 L (36.0-48.0) % MCV 89 (80-98) fL MCH 28 (27-31) pg MCHC 32 (32-36) % Plt Count 536 H (150-400) K/uL Neut % (Auto) 67 H (36-66) % Lymph % (Auto) 17 L (24-44) % Door % (Auto) 15 H (2-6) % Eos % (Auto) 1 L (2-4) % Baso % (Auto) 0 (0-1) % Sodium 140 (140-148) mmol/L Potassium 3.5 L (3.6-5.2) mmol/L Chloride 104 (100-108) mmol/L Carbon Dioxide 25 (21-32) mmol/L Anion Gap 14.5 H (5.0-14.0) mmol/L BUN 3 L (7-18) mg/dL Creatinine 0.5 L (0.6-1.0) mg/dL Est Cr Clr Drug Dosing 158.42 mL/min Estimated GFR (MDRD) > 60 (>60) Glucose 135 H (74-106) mg/dL Calcium 8.4 L (8.5-10.1) mg/dL Phosphorus 3.6 (2.5-4.9) mg/dL Magnesium 1.7 L D (1.8-2.4) mg/dL Total Bilirubin 0.3 (0.2-1.0) mg/dL AST 26 (15-37) U/L ALT 36 (12-78) U/L Alkaline Phosphatase 104 (46-116) U/L C-Reactive Protein 18.35 H (0.0-0.3) mg/dL Total Protein 7.3 (6.4-8.2) g/dL Albumin 2.3 L (3.4-5.0) g/dL Globulin 5.0 H (2.3-3.5) g/dL Albumin/Globulin Ratio 0.5 L (1.2-2.2) Med Orders - Current: Current Medications Acetaminophen (Tylenol) 650 mg PO Q4H PRN PRN Reason: ANALESIA/FEVER Last Admin: 04/25/19 04:58 Dose: 650 mg Acetaminophen (Tylenol) 650 mg RECTAL Q4H PRN PRN Reason: ANALESIA/FEVER Citalopram Hydrobromide (Celexa) 10 mg PO DAILY [facility] Last Admin: 04/25/19 08:48 Dose: 10 mg Hydromorphone HCl (Dilaudid Lining Vamper 15 Mg In Ns 30 Ml) 0 mg IV ASDIRECTED PRN; Protocol PRN Reason: Pain Last Admin: 04/24/19 16:48 Dose: 15 mg Dextrose/Lactated Ringer's (Dextrose 5%-Lactated Ringers) 1,000 mls @ 100 mls/ hr IV ASDIRECTED QUENTIN Last Admin: 04/25/19 10:11 Dose: 100 mls/hr Magnesium Sulfate 2 gm/ Premix 50 mls @ 25 mls/hr IV Q6H QUENTIN Stop: 04/28/19 03:59 Last Admin: 04/25/19 08:43 Dose: 25 mls/hr Potassium Phosphate 20 mmole/ (Sodium Chloride) 256.6667 mls @ 85 mls/hr IV ONETIME ONE Stop: 04/25/19 16:31 Naloxone HCl (Narcan) 0.4 mg IVPUSH Q2M PRN PRN Reason: Respiratory Distress Ondansetron HCl (Zofran) 4 mg IVPUSH Q4H PRN PRN Reason: Nausea/Vomiting Last Admin: 04/25/19 10:43 Dose: 4 mg Sodium Chloride (Saline Flush) 10 ml FLUSH ONETIME PRN PRN Reason: PER RADIOLOGY PROTOCOL Last Admin: 04/24/19 15:16 Dose: 10 ml Tizanidine HCl (Zanaflex) 4 mg PO Q6H PRN PRN Reason: Muscle Spasm Last Admin: 04/25/19 12:16 Dose: 4 mg Discontinued Medications Sodium Chloride (Normal Saline) 90 mls @ 3 mls/sec IV ONETIME ONE Stop: 04/24/19 14:42 Last Admin: 04/24/19 15:17 Dose: 3 mls/sec Potassium Phosphate 20 mmole/ (Sodium Chloride) 256.6667 mls @ 85 mls/hr IV Q3H [facility] Stop: 04/25/19 12:15 Last Admin: 04/25/19 10:11 Dose: 85 mls/hr Iopamidol (Isovue-300 (61%)) 30 ml PO ASDIRECTED ONE Stop: 04/24/19 14:42 Last Admin: 04/24/19 16:34 Dose: Not Given Iopamidol (Isovue-370 (76%)) 100 ml IV . DIRECTED [facility] Last Admin: 04/24/19 15:16 Dose: 100 ml Meperidine HCl (Demerol) 100 mg IM ONETIME ONE Stop: 04/24/19 14:01 Last Admin: 04/24/19 14:10 Dose: 100 mg - Exam General: Alert, Oriented Skin: Warm, Dry, Intact Neurological: No New Focal Deficit Psy/Mental Status: Alert, Normal Affect, Normal Mood Physical Findings Comments:: Left shoulder with no swelling, warmth or erythema, has fairly good ROM with pain at extremes, tender along trapezius and superior scapula, minimal tenderness today over lateral edge of acromion, mild discomfort with resisted internal rotation, more pain with resisted external rotation and abduction, strength 4/5, Sepsis Event Note - Evaluation Sepsis Screening Result: No Definite Risk - Focused Exam Vital Signs: Vital Signs Temp Pulse Resp BP Pulse Ox 04/25/19 12:41 90 L 04/25/19 10:29 35.6 C L 90 16 137/74 93 L 04/25/19 07:16 98 04/25/19 07:07 35.4 C L 86 16 113/58 L 96 04/25/19 03:30 36.3 C 89 18 96 Date Exam was Performed: 04/25/19 Time Exam was Performed: 12:49 Consult PN Assessment/Plan Procedures: Procedures BLOOD TYPING SEROLOGIC ABO (08/22/18) BLOOD TYPING SEROLOGIC RH(D) (08/22/18) EGD DIAGNOSTIC BRUSH WASH (09/02/18) RBC ANTIBODY SCREEN (08/22/18) URINE TEST (09/02/18) (1) Acute pain of left shoulder SNOMED Code(s): 76382833, 671140136 Code(s): M25.512 - PAIN IN LEFT SHOULDER Current Visit: Yes Problem List Initiated/Reviewed/Updated: Yes Plan: X-rays reviewed and are unremarkable. The portions of the shoulder that can be seen on the CT scan of the chest are also unremarkable. WBC and C-RP elevated but general appearance and exam is not consistent with septic joint. IMP: Atypical left shoulder pain. Presentation and exam not typical of acute reactive bursitis. Constant nature of pain and radiation suggests nerve impingement. Could obtain MRI of shoulder to rule out effusion and inflammatory process. If this is negative would treat as a cervical radiculopathy/radiculitis.
[2019-04-25] MEDS ORDERED: Potassium Phosphates 20 MMOLE in Sodium Chloride 0.9% 250 ML IV ONE (13:30)
[2019-04-26] MEDS: Magnesium Sulfate/Water 2 GM in Premix Bag 1 BAG IV SCH ×4 (02:30→19:40)
[2019-04-26] MEDS: Dextrose 5%-Lactated Ringers 1,000 ML IV SCH ×2 (06:26→17:00)
[2019-04-26] MEDS: Citalopram 10 MG Tab PO SCH (08:06)
[2019-04-26] MEDS: Ondansetron 4 MG/2 ML SDV IVPUSH PRN (09:48)
[2019-04-26] MEDS ORDERED: Magnesium Hydroxide 400 MG/5 ML Susp 30 ML Cup PO PRN (10:44)
[2019-04-26] MEDS: HYDROmorphone/Normal Saline 15 MG/30 ML PCA IV PRN (11:22)
[2019-04-26] MEDS: tiZANidine 4 MG Tab PO SCH ×3 (11:24→22:02)
[2019-04-26] MEDS: Celecoxib 200 MG Cap PO SCH ×2 (11:24→22:02)
[2019-04-26] MEDS: Potassium Chloride 20 MEQ, Lidocaine 1% 2 ML in Sodium Chloride 0.9% 100 ML IV SCH ×2 (11:41→14:03)
[2019-04-27] MEDS: Magnesium Sulfate/Water 2 GM in Premix Bag 1 BAG IV SCH ×2 (02:08→09:07)
[2019-04-27] MEDS: Dextrose 5%-Lactated Ringers 1,000 ML IV SCH (03:46)
[2019-04-27] MEDS: tiZANidine 4 MG Tab PO SCH ×2 (05:49→09:03)
[2019-04-27] MEDS: Acetaminophen 325 MG Tab PO PRN (06:01)
[2019-04-27] MEDS ORDERED: HYDROmorphone 2 MG Tab PO PRN (07:39)
[2019-04-27] MEDS: Citalopram 10 MG Tab PO SCH (09:03)
[2019-04-27] MEDS: Celecoxib 200 MG Cap PO SCH (09:03)
--- NOTE | 2019-04-27 14:15 | PN ---
DATE OF SERVICE: 04/26/2019 The patient has been afebrile. Temperature is in the 97 to 98 range. Rate is in the 80s to 90s with blood pressure of 114/72. Her O2 saturation was found to be little bit low, on 2 L of nasal cannula it was 91%, and we will need to work on getting improved pulmonary toilet and activity today. We will check a chest x-ray tomorrow morning to rule out any significant pleural effusions. Her CT scan 2 days ago did show some basilar atelectasis but no effusion. We will need to work a little bit more today in increasing activity and working with pulmonary toilet. Dr. Gutierrez as well as Dr. Cordova of the Orthopedic Department saw the patient yesterday thinking there is some primary problem with the left shoulder or possibly C-spine. We will obtain MRI of those structures on Sunday and otherwise may take Zanaflex scheduled medication q.i.d. and also add Celebrex 200 mg p.o. b.i.d. to the current pain management. The patient's abdomen remains soft. Incisions are clean. Although she does have some blood within the left lobe of the liver as well as around the gastrojejunostomy, this certainly has no appearance suggestive of an infectious process in terms of the overall picture. We will continue to monitor that issue over time. Labs show white count of 9.4, hemoglobin is 10.6, potassium markedly low at 3.4 and we will supplement her today with some potassium chloride IV. Otherwise, maximize activity and work with pulmonary toilet. Keyshawn Gillis MD /[id number]
--- NOTE | 2019-04-28 09:40 | DISCH ---
FINAL DIAGNOSES: 1. Acute pain, left shoulder. 2. Status post recent revision of Meron-en-Y gastric bypass (04/07/2019). 3. History of polycystic ovary disease. OPERATIVE PROCEDURES: None. SUMMARY: This 34-year-old status post revision Meron-en-Y gastric bypass done laparoscopically on 04/07/2019, and she initially was doing well. She presented earlier this past week to [facility] with acute shoulder pain. CT scan was obtained at that time, which showed some intrahepatic blood, likely related to the liver biopsy and/or retraction of the liver during the procedure, as well as some fluid around the gastrojejunostomy, but no evidence of infection per se. She then presented in [place] with the pain quite severe in the left shoulder and was admitted for further evaluation. Subsequent CT scan showed the above findings, and clinically she has had no signs of sepsis, normal white counts, no fevers throughout the hospitalization, and the shoulder pain continued to be the primary issue. She was seen by the hospitalist, as well as orthopedics consultants, who did not feel that there was any specific bony problem. Plain x-rays as well as CT of the shoulder showed no bony abnormality, and he also did not feel this was suggestive of acute reactive bursitis. He felt that constant nature of the pain radiation suggested some nerve impingement. During the hospitalization, her symptoms did improve quite a bit with IV Dilaudid and Zanaflex, along with ongoing Celebrex. She was scheduled to have an MRI tomorrow, but at this point wished to be discharged and follow up with her personal physician regarding the shoulder issue, as her symptoms have improved quite dramatically over the last day and a half. Once again, during the hospitalization, there was no evidence of infection, and she is tolerating a step-2 diet well. She will be advanced to step-3 diet today, and she will be discharged home. She will continue her present home medications plus some additional Celebrex 200 mg to be taken b.i.d. for the next month, Zanaflex 4 mg q.i.d. p.r.n., Dilaudid 2 mg p.o. q.4 hours p.r.n. pain #40, and Tylenol 1 g p.o. q.6 hours p.r.n. pain. She will be following up with Mildred Ferreira at [facility] in [place] on 05/14/2019, and then she will be instructed to follow up with her personal physician, Dr. Alberts at [place] regarding the shoulder and neck issues.
--- NOTE | 2019-04-28 09:43 | CR ---
CHEST: 2 view CLINICAL HISTORY:Atelectasis and pleural effusion COMPARISON:CT 04/24/2019 FINDINGS: Patient has a small left pleural effusion. The there is left infrahilar opacification. This is suspect for infiltrate. There may be an element of subsegmental atelectasis. Impression: Persistent small left pleural effusion New airspace disease in the left lower lobe may represent atelectasis and/or pneumonic infiltrate Short-term follow-up recommended until clear
== END 2019-04-27 09:57 | disposition home or self-care (01) ==
LOC: JP.MS 12:43 → UNDOADMIN 12:43 → UNDODISIN 04-27 09:57 → EDSTATUS 04-28 11:26
PROVIDERS: ADMIT Surgery; ATTEND Surgery
DX: M25.512 Pain in left shoulder (principal); E53.8 Deficiency of other specified B group vitamins; E66.01 Morbid (severe) obesity due to excess calories; Z87.42 Personal history of other diseases of the female genital tract; Z98.84 Bariatric surgery status; Z79.2 Long term (current) use of antibiotics; Z68.41 Body mass index [BMI] 40.0-44.9, adult; Z88.0 Allergy status to penicillin; Z98.890 Other specified postprocedural states; Z90.49 Acquired absence of other specified parts of digestive tract; Z79.899 Other long term (current) drug therapy
CPT/HCPCS: 36415; 71046; 71275; 73030; 74177; 80053; 83735; 84100; 85025; 85027; 86140; 93971; 94762; 96361; 96365; 96366; 96368; 96372; 96375; 96376; 97162; A9270; G0378; J1170; J2001; J2175; J2405; J3475; J3480; J7050; J7121; Q9967; 99202; J3490

== ENCOUNTER 2019-05-06 07:12 | Day surgery (SDC) | payer OTHER ==
[2019-05-06] MEDS ORDERED: Glycopyrrolate 0.2 MG/ML 2 ML SDV IVPUSH ONE (07:45)
[2019-05-06] MEDS ORDERED: Cyanocobalamin (Vitamin B12) 1,000 MCG/ML SDV IM ONE (07:45)
[2019-05-06] MEDS ORDERED: Lactated Ringers 1,000 ML IV ONE (07:45)
[2019-05-06] MEDS ORDERED: MVI, Adult with Vitamin K 10 ML, Thiamine 200 MG, Chromium/Copper/Mang/Selen/Zn 1 ML in... IV ONE ×4 (08:45)
[2019-05-06] MEDS ORDERED: Dexamethasone 4 MG/ML SDV ONE (08:57)
--- NOTE | 2019-05-19 14:00 | OR ---
DATE OF PROCEDURE: 05/06/2019 SURGEON: Keyshawn Gillis MD PREOPERATIVE DIAGNOSIS: Probable stricture at gastrojejunostomy. POSTOPERATIVE DIAGNOSIS: Very tight stricture at gastrojejunostomy. OPERATIVE PROCEDURE: Upper gastrointestinal endoscopy with dilation of gastrojejunostomy ([id number]). ANESTHESIA: IV sedation. INDICATION FOR PROCEDURE: The patient is status post revision of Meron-en-Y gastric bypass on 04/07/2019 and presents now with symptoms suggestive of stricturing at her gastrojejunostomy. Plan is to proceed with upper GI endoscopy with dilation as indicated. Potential risks including bleeding and perforation were discussed, and the patient wishes to proceed. DETAILS OF PROCEDURE: The patient was taken to the operating room and placed in a left lateral decubitus position. IV sedation was administered, after which the upper GI endoscope was passed orally through the length of the esophagus and into the area of the gastric pouch. The patient had no retained food or fluid, but it had a very tight stricture measuring probably in the range of 2 to 3 mm in diameter. A Bard gastrointestinal catheter was then centered across the anastomosis and inflated to 30-[place] size. This was held in position for 1 minute, after which balloon catheter was deflated and withdrawn. The scope was then able to be passed through the anastomosis. No complications encountered, and the procedure was then concluded. The patient was taken to the recovery room in satisfactory condition. Keyshawn Gillis MD /[id number]
== END 2019-05-06 11:40 | disposition home or self-care (01) ==
LOC: JP.SDS 07:12
PROVIDERS: ATTEND Surgery
DX: K91.89 Other postprocedural complications and disorders of digestive system (principal); Z98.84 Bariatric surgery status
CPT/HCPCS: 36415; 43245; 80053; 81025; 83735; 84100; 85027; J1100; J3411; J3420; J3490; J7120

== ENCOUNTER 2019-05-21 06:11 | Day surgery (SDC) | payer OTHER ==
[2019-05-21] MEDS ORDERED: Lactated Ringers 1,000 ML IV SCH (07:00)
[2019-05-21] MEDS ORDERED: Cyanocobalamin (Vitamin B12) 1,000 MCG/ML SDV IM ONE (07:00)
[2019-05-21] MEDS ORDERED: Glycopyrrolate 0.2 MG/ML 2 ML SDV IVPUSH ONE (07:15)
[2019-05-21] MEDS ORDERED: Propofol 200 MG/20 ML SDV ONE (07:20)
[2019-05-21] MEDS ORDERED: Midazolam 1 MG/ML 2 ML SDV ONE (07:20)
[2019-05-21] MEDS ORDERED: fentaNYL 100 MCG/2 ML SDV ONE ×2 (07:20→07:21)
[2019-05-21] MEDS ORDERED: Dexamethasone 4 MG/ML SDV ONE (07:29)
[2019-05-21] MEDS ORDERED: MVI, Adult with Vitamin K 10 ML, Thiamine 200 MG, Chromium/Copper/Mang/Selen/Zn 1 ML in... IV ONE ×4 (08:30)
--- NOTE | 2019-05-28 15:24 | OR ---
DATE OF PROCEDURE: 05/21/2019 SURGEON: Keyshawn Gillis MD PREOPERATIVE DIAGNOSIS: Probable stricture at gastrojejunostomy. POSTOPERATIVE DIAGNOSIS: Tight stricture at gastrojejunostomy. OPERATIVE PROCEDURE: Upper GI endoscopy with dilation of gastrojejunostomy ([id number]). ANESTHESIA: IV sedation. INDICATIONS FOR PROCEDURE: This is a 34-year-old status post Meron-en-Y gastric bypass on 04/07/2019, presented with stricture on 05/06/2019 and this was quite tight, was dilated with 30-Faroese dilator. She presents now with recurrent symptoms of stricturing and is undergoing an upper GI endoscopy with dilation as indicated. Potential risks including bleeding and perforation were discussed, and the patient wishes to proceed. DETAILS OF PROCEDURE: The patient was taken to the operating room and placed in a left lateral decubitus position. IV sedation was administered. The upper GI endoscope was passed orally through the remainder of esophagus into the gastric pouch. No retained food or fluid was noted. There was a fairly tight stricture at the gastrojejunostomy, but this was not quite as tight as previous one. Bard gastrointestinal catheter was centered across the anastomosis and inflated to 30-[place] size. This was held in position for 1 minute, after which the balloon catheter was deflated and withdrawn. The scope could easily be passed through the anastomosis. No complications were evident and the procedure was then concluded with withdrawal of the scope. The patient was taken to the recovery room in satisfactory condition. Keyshawn Gillis MD /[id number]
== END 2019-05-21 10:45 | disposition home or self-care (01) ==
LOC: JP.SDS 06:11
PROVIDERS: ATTEND Surgery
DX: K94.23 Gastrostomy malfunction (principal); I10 Essential (primary) hypertension; Z88.0 Allergy status to penicillin
CPT/HCPCS: 36415; 43245; 80053; 81025; 82728; 83735; 84100; 85027; J1100; J2250; J2704; J3010; J3411; J3420; J3490; J7120